=== PATIENT | female | born 1995 | race Caucasian/White ===

== ENCOUNTER 2021-12-30 13:42 | Outpatient (CLI) | payer BC, SELFPAY ==
--- NOTE | ~2021-12-30 | US_ITS ---
EXAMINATION: US OB transvaginal DATE: 12/30/2021 14:10 INDICATION: Threatened spontaneous TECHNIQUE: Real-time transvaginal obstetric ultrasound. FINDINGS: No prior studies for comparison. The uterus measures 8.1 x 5 x 5.6 cm. Uterus is retroverted. There is an intrauterine gestational sac , with pole identified. The crown rump length measures 0.63 cm, which correlates with a estima malachi gestational age of 6 weeks 3 days. heart tones are identified measuring 121 bpm. There is a 2.5 cm corpus luteal cyst of the right ovary. Left ovary is unremarkable. IMPRESSION: 1. SL IUP with an EGA of 6 weeks, 3 days (EDC by current ultrasound of 08/22/2022). Reviewed, dictated and finalized at location A. E GRINDER IMPRESSION: 1. SL IUP with an EGA of 6 weeks, 3 days (EDC by current ultrasound of 08/22/20 22).
== END 2021-12-30 13:43 ==
PROVIDERS: Visit Provider Obstetrics & Gynecology
DX: O20.0 Threatened abortion (principal); Z3A.01 Less than 8 weeks gestation of pregnancy
CPT/HCPCS: 76817

== ENCOUNTER 2022-05-26 10:38 | Outpatient (RCR) | payer BC, MEDICAID, SELFPAY ==
[2022-05-26 11:38] VITALS: BP 122/67; PULSE 106
== END 2022-07-27 10:00 | disposition home or self-care (01) ==
LOC: ANHOBOP 10:38
PROVIDERS: PCP Family Medicine; Visit Provider Obstetrics & Gynecology
DX: O36.8120 Decreased fetal movements, second trimester, not applicable or unspecified (principal); O24.419 Gestational diabetes mellitus in pregnancy, unspecified control; Z3A.27 27 weeks gestation of pregnancy
CPT/HCPCS: 59025

== ENCOUNTER 2022-06-26 15:53 | Outpatient (RCR) | payer BC, MEDICAID, SELFPAY ==
[2022-06-26 16:42] LABS: Basophils Percent Auto 0.2 % (0.2-1.2); Eosinophils Absolute Auto 0.1 K/mm3 (0-0.3); Eosinophils Percent Auto 0.9 % (0-4.4); Hematocrit 27.9 % (37.0-47.0); Hemoglobin 8.7 g/dL (12.0-15.0); Immature Granulocyte Absolute 0.19 K/mm3 (0.00-0.031); Lymphocytes Absolute Auto 2.05 K/mm3 (0.9-3.2); Lymphocytes Percent Auto 21.9 % (18.3-44.2); Mean Corpuscular HGB Conc 31.2 g/dl (32-36); Mean Corpuscular Hemoglobin 23.7 pg (26-34); Mean Platelet Volume 10.7 fl (7.4-10.4); Monocytes Absolute Auto 0.6 K/mm3 (0.1-0.6); Monocytes Percent Auto 6.7 % (2.6-8.5); Neutrophils Absolute Auto 6.4 K/mm3 (1.3-6.7); Neutrophils Percent Auto 68.3 % (45.5-73.1); Nucleated Red Blood Cells Perc 0.4 % (0.0-0.2); Platelet Count Result 284 k/mm3 (150-375); Red Blood Count 3.67 M/mm3 (4.2-5.4); Red Cell Distribution Width 15.4 % (11.5-14.5); White Blood Count 9.3 K/mm3 (4.5-10.0)
[2022-06-26 16:44] LABS: Appearance Urine Slightly Cloudy (Clear); Bilirubin Urine Negative (Negative); Blood Urine Negative (Negative); Color Urine Yellow (Yellow); Glucose Urine UA 3+ mg/dL (Negative); Ketones Urine Negative (Negative); Leukocyte Esterase Ur Trace LEU/UL (NEGATIVE); Nitrate Urine Negative (Negative); Protein Urine Negative (Negative); Specific Grav Ur 1.015 (1.001-1.035)
[2022-06-26 16:47] LABS: Alanine Aminotransferase 10 U/L (6-35); Albumin Level 3.1 g/dL (3.5-5.1); Alkaline Phosphatase 138 U/L (38-126); Anion Gap 8 mmol/L (8-16); Aspartate Amino Transferase 18 U/L (14-36); Bilirubin,Total 0.3 mg/dL (0.2-1.3); Blood Urea Nitrogen 4 mg/dL (7-17); Calcium 8.9 mg/dL (8.4-10.2); Carbon Dioxide 22 mmol/L (22-30); Chloride 104 mmol/L (98-107); Estimated Glomerular Filt Rate > 60; Glucose 171 mg/dL (65-110); Potassium 3.1 mmol/L (3.4-5.0); Sodium 134 mmol/L (137-145); Uric Acid 3.9 mg/dL (2.5-7.5)
[2022-06-26 16:53] LABS: Budding Yeast Urine Present /hpf; Mucus Urine Rare /lpf; RBC Urine 0-2 /hpf (0-2); Squamous Epithelial Cell Urine Many /hpf (Few)
[2022-06-26 17:01] LABS: Add Urine Microscopic? YES
[2022-06-26 18:08] LABS: Creatinine Urine 62.3 mg/dL; Total Protein Urine Random 11 mg/dL; Ur Ttl Prot Creatinine Ratio 0.18 mg/mg (0-0.20)
[2022-06-26 18:26] VITALS: BP 134/76; PULSE 109
== END 2022-08-15 08:24 | disposition home or self-care (01) ==
LOC: ANHDMC 15:53
PROVIDERS: PCP Family Medicine; Visit Provider Obstetrics & Gynecology
DX: O24.319 Unspecified pre-existing diabetes mellitus in pregnancy, unspecified trimester (principal); Z71.89 Other specified counseling; Z3A.00 Weeks of gestation of pregnancy not specified
CPT/HCPCS: 36415; 59025; 80053; 81001; 82570; 84156; 84550; 85025; 87086; 87088; G0108

== ENCOUNTER 2022-07-19 09:31 | Observation (INO) | payer MEDICAID, SELFPAY ==
--- NOTE | 2022-07-19 09:32 | OBADM ---
This patient, Liseth Victoria, admitted to the OB room Labor/Delivery/Recovery 118 for observation. Patient/family oriented to hospital policies and general routines including ID bracelet, bed and alarms, visiting hours, pain management, procedures, bathroom and other care routines, personal items, smoking policy, room service/diet, and visiting hours. Patient/Family are encouraged to report perceived risks to care and to ask questions if they do not understand what they are told or what they should do.
[2022-07-19 11:21] VITALS: BP 125/76; PULSE 82
[2022-07-19 11:30] VITALS: BP 125/78; PULSE 87
[2022-07-19] MEDS: NIFEdipine 10 MG CAPSULE PO (11:34)
[2022-07-19 11:36] VITALS: BMI 37.5
--- NOTE | 2022-07-26 11:11 | PM.OBTRLD ---
OB - Triage/Final Diagnosis Visit Information Comments/Additional reasons for admission: I have assessed the risk for this patient, Liseth Victoria, and determined that she would benefit from observation care. Final Diagnosis (1) False labor: Code(s): O47.9 - False labor, unspecified Status: Acute
== END 2022-07-19 13:25 | disposition home or self-care (01) ==
PROVIDERS: Admitting Provider Obstetrics & Gynecology; PCP Family Medicine; Visit Provider Obstetrics & Gynecology
DX: O47.03 False labor before 37 completed weeks of gestation, third trimester (principal); O24.419 Gestational diabetes mellitus in pregnancy, unspecified control; Z3A.35 35 weeks gestation of pregnancy
CPT/HCPCS: A9270; G0378; G0379

== ENCOUNTER 2022-07-19 09:32 | Outpatient (RCR) | payer BC, MEDICAID, SELFPAY ==
[2022-06-29 15:03] VITALS: BP 107/58; PULSE 98
[2022-07-04 14:41] VITALS: BP 121/70; PULSE 101
[2022-07-11 16:40] VITALS: BP 113/68; PULSE 82
--- NOTE | ~2022-07-19 | US_ITS ---
EXAMINATION: US OB BPP wo non-stress DATE: 07/19/2022 11:14 INDICATION: Gestational diabetes. Decelerations. Third trimester. TECHNIQUE: Real-time pelvic ultrasound was performed. COMPARISON: Ultrasound 12/30/2021 FINDINGS: There is a single living fetus in vertex presentation. The placenta is anterior. heart rate is 174 beats per minute (bpm). The amniotic fluid volume is subjectively normal. Biophysical profile performed by the technologist: breathing (30 sec sustained breathing in 30 minutes): 2 out of 2 movement (3 gross body movements in 30 minutes): 2 out of 2 tone (one episode of secilmz-iyhnywqre-nqfrjdc limb movement): 2 out of 2 Amniotic fluid pocket (2 cm): 2 out of 2 Total score: 8 out of 8 IMPRESSION: 1. Single living fetus in vertex presentation. 2. Biophysical profile 8 out of 8. Reviewed, dictated and finalized at location A.
== END 2022-09-27 23:59 | disposition home or self-care (01) ==
LOC: ANHOBOP 09:32
PROVIDERS: PCP Family Medicine; Visit Provider Obstetrics & Gynecology
DX: O24.419 Gestational diabetes mellitus in pregnancy, unspecified control (principal); Z3A.32 32 weeks gestation of pregnancy; Z3A.33 33 weeks gestation of pregnancy
CPT/HCPCS: 59025; 76819; J2274; J3010

== ENCOUNTER 2022-07-19 22:27 | Observation (INO) | payer MEDICAID, SELFPAY ==
--- NOTE | 2022-07-19 22:33 | PM.OBTRLD ---
OB - Triage/Final Diagnosis Visit Information Date of evaluation: 07/19/22 Reason for evaluation: threatened labor Comments/Additional reasons for admission: I have assessed the risk for this patient, Liseth Victoria, and determined that she would benefit from observation care.
[2022-07-19 22:59] VITALS: BP 126/74; PULSE 85
[2022-07-19 23:01] VITALS: BP 126/78; PULSE 86
[2022-07-19 23:35] LABS: Appearance Urine Slightly Cloudy (Clear); Bilirubin Urine Negative (Negative); Blood Urine Negative (Negative); Glucose Urine UA Negative (Negative); Ketones Urine Negative (Negative); Leukocyte Esterase Ur 1+ LEU/UL (Negative); Nitrate Urine Negative (Negative); Protein Urine Negative (Negative); Specific Grav Ur 1.015 (1.001-1.035); Urobilinogen Urine 0.2 mg/dL (<2.0)
[2022-07-19 23:41] LABS: RBC Urine 0-2 /hpf (0-2); Squamous Epithelial Cell Urine Many /hpf (Few)
[2022-07-19 23:43] LABS: Add Urine Microscopic? YES; Color Urine Light Yellow (Yellow)
== END 2022-07-20 01:20 | disposition home or self-care (01) ==
PROVIDERS: Admitting Provider Obstetrics & Gynecology; PCP Family Medicine; Visit Provider Obstetrics & Gynecology
DX: O47.03 False labor before 37 completed weeks of gestation, third trimester (principal); O24.419 Gestational diabetes mellitus in pregnancy, unspecified control; Z3A.35 35 weeks gestation of pregnancy
CPT/HCPCS: 81001; 87086; 87088; A9270; G0378; G0379

== ENCOUNTER 2022-07-21 17:53 | Outpatient (CLI) | payer MEDICAID, SELFPAY ==
[2022-07-21 18:26] VITALS: BP 124/77; PULSE 89
== END 2022-07-21 19:30 | disposition home or self-care (01) ==
LOC: ANHOBOP 18:00 → ANHOBPP 07-26 06:10
PROVIDERS: PCP Family Medicine; Visit Provider Obstetrics & Gynecology
DX: O41.8X90 Other specified disorders of amniotic fluid and membranes, unspecified trimester, not applicable or unspecified (principal); Z3A.00 Weeks of gestation of pregnancy not specified
CPT/HCPCS: 59025; 84112; 99199

== ENCOUNTER 2022-07-22 14:49 | Inpatient (IN) | payer MEDICAID, SELFPAY ==
[2022-07-22] VITALS (59 sets, daily range): BP systolic 87–136; BP diastolic 63–85; PULSE 66–103; RESP 16; TEMP 36.2–37.3; O2SAT 94–100; BMI 38.0
--- NOTE | 2022-07-22 15:52 | P.PNAN_ITS ---
Anes - Initial Pre Proc Eval Date/Time: 07/22/22 15:52 Surgeon: Vincenzo Morgan MD Pre Op Diagnosis: SROM Patient Data Age: 27 Gender: F Height: Weight: Last Vital Signs Pulse Ox 100 07/22/22 15:47 Allergies Allergy/AdvReac Type Severity Reaction Status Date / Time No Known Allergies Allergy Verified 11/23/19 13:09 Home Medications Medication Instructions Recorded Confirmed Type insulin NPH isoph U-100 human 100 14 unit subcut BID 05/26/22 05/26/22 History unit/mL (3 mL) subcutaneous pen (Novolin N Flexpen) Patient hx anesthesia problems: none Family hx anesthesia problems: none Results Review: All pre-operative results and documents have been reviewed as part of the pre- operative evaluation. Anes - Eval Final PreProcedure Day of Procedure 07/22/22 15:52 Patient weight: obese Heart: regular rate and rhythm Lungs: clear to auscultation and normal air movement Airway: Mallampati scale class II Neurological: alert and oriented Last oral intake: >/= 8 hours ASA classification: III Emergent: no Anesthetic plan: proceed Anesthesia type and monitoring: regional spinal Results Review: All pre-operative results and documents have been reviewed as part of the pre- operative evaluation. Informed Consent: The patient's anesthetic plan and its attendant risks and benefits were discussed with the patient/family/POA. Questions were solicited and answers provided to the satisfaction of the patient/family/POA.
--- NOTE | 2022-07-22 16:10 | LDADM ---
Addendum entered by Filomena Nieves RN 07/22/22 18:58: Plans for surgery/ and pain managemenbt explained. Original Note: This patient, Liseth Victoria, was admitted to Labor/Delivery/Recovery 105 on 07/22/22 at 14:49. Plans for labor, pain management and were discussed with patient. Patient/family oriented to hospital policies and general routines including ID bracelet, bed and alarms, visiting hours, pain management, procedures, bathroom and other care routines, personal items, smoking policy, room service/diet and guest tray routines, security routines, and visiting hours. Patient/Family are encouraged to report perceived risks to care and to ask questions if they do not understand what they are told or what they should do. See OBIX for further documentation.
[2022-07-22] MEDS: LACTATED RINGERS 1,000 ML 125 ML IV CONT (16:20)
[2022-07-22 16:26] LABS: Glucose Point of Care 97 mg/dl (65-105)
[2022-07-22 16:29] LABS: Basophils Percent Auto 0.2 % (0.2-1.2); Eosinophils Absolute Auto 0.1 K/mm3 (0-0.3); Eosinophils Percent Auto 0.6 % (0-4.4); Hematocrit 30.7 % (37.0-47.0); Hemoglobin 9.2 g/dL (12.0-15.0); Immature Granulocyte Absolute 0.21 K/mm3 (0.00-0.031); Lymphocytes Absolute Auto 1.91 K/mm3 (0.9-3.2); Lymphocytes Percent Auto 18.1 % (18.3-44.2); Mean Corpuscular Volume 73.3 fl (80-100); Monocytes Absolute Auto 0.8 K/mm3 (0.1-0.6); Neutrophils Absolute Auto 7.5 K/mm3 (1.3-6.7); Neutrophils Percent Auto 71.1 % (45.5-73.1); Nucleated Red Blood Cells Absolute Auto 0.1 K/mm3 (0.0-0.012); Nucleated Red Blood Cells Perc 0.5 % (0.0-0.2); Platelet Count Result 278 k/mm3 (150-375); Red Blood Count 4.19 M/mm3 (4.2-5.4); Red Cell Distribution Width 16.9 % (11.5-14.5); White Blood Count 10.6 K/mm3 (4.5-10.0)
--- NOTE | 2022-07-22 16:50 | PM.IMHP ---
H&P: HPI History of Present Illness Date/Time: 07/22/22 16:50 Chief Complaint: Malaika patino Narrative: 27 y/o at 35 4/7 weeks here with SROM at 1400, confirmed by [facility] on arrival here. Feels occasional contractions. A2DM, on insulin. Good glycemic control. GBS has not been collected yet. Review of Systems Review of Systems: All systems reviewed & are unremarkable except as noted in HPI and below PMFSH Past Medical History Medical History (Updated 07/22/22 @ 16:54 by Vincenzo Morgan MD) History of gestational diabetes in prior , currently Surgical History Surgical History (Updated 07/22/22 @ 16:54 by Vincenzo Morgan MD) History of delivery Meds Home Medications and Allergies Home Medications Medication Instructions Recorded Confirmed Type insulin NPH isoph U-100 human 100 6 unit subcut QACBREAK 07/22/22 07/22/22 History unit/mL (3 mL) subcutaneous pen (Novolin N Flexpen) insulin regular human 100 unit/mL 14 unit subcut QACBREAK 07/22/22 07/22/22 History (3 mL) subcutaneous pen (Novolin R Flexpen) insulin regular human 100 unit/mL 18 unit subcut QACBREAK 07/22/22 07/22/22 History (3 mL) subcutaneous pen (Novolin R Flexpen) vit no.95-ferrous 1 tablet PO DAILY 07/22/22 07/22/22 History fumarate 28 mg-folic acid 800 mcg tablet () Allergies Allergy/AdvReac Type Severity Reaction Status Date / Time No Known Allergies Allergy Verified 11/23/19 13:09 Vital Signs Vital Signs - 24 hr 07/22/22 15:47 07/22/22 15:52 07/22/22 16:30 Pulse Rate 95 Blood Pressure 133/75 Pulse Oximetry 100 100 Exam Const: Orientation/consciousness: patient oriented x3 Other: Well-developed, well-nourished female in no acute distress. Neck: Thyroid: thyroid normal Lymphatic: no lymphadenopathy noted (in neck, axilla or inguinal nodes) Resp: Effort & Inspection: normal respiratory effort Auscultation: clear to auscultation bilaterally Cardio: Rate: regular rate Rhythm: regular rhythm Heart sounds: S1 normal heart sound present and S2 normal heart sound present GI: Other: ABD: Soft, nontender, nondistended, gravid. NST reactive. TOCO: contractions irregularly. No guarding or rebound tenderness. No hepatosplenomegaly. : General: Yes no CVA tenderness Other: [facility] pos Back/Spine/Pelvis: Back: no CVA tenderness Skin: General skin exam: normal color and no rashes or lesions noted Neuro: General: patient oriented x3 Extrem: Other: Extremities: nontender with no edema Psych: Mental Status: mental status grossly normal Affect: normal affect H&P: Results Labs Labs: Short CBC 07/22/22 Range/Units 16:22 WBC 10.6 H (4.5-10.0) K/mm3 Hgb 9.2 L (12.0-15.0) g/dL Hct 30.7 L (37.0-47.0) % Plt Count 278 (150-375) k/mm3 Assessment and Plan Assessment and plan (1) PROM (premature rupture of membranes): Code(s): O42.90 - Premature rupture of membranes, unspecified as to length of time between rupture and onset of labor, unspecified weeks of gestation Status: Acute Assessment and Plan: A: SROM at 35 4/7 weeks, with A2DM and prior . Desires repeat. P: Offered repeat . She understands risks of surgery to include risks of anesthesia, risks of pain, infection, bleeding, blood products, thromboembolic phenomena and damage to adjacent structures such as bowel, bladder, ureters, blood vessels and nerves. She understands all these risks and elects to proceed with surgery. (2) Gestational diabetes mellitus: Code(s): O24.419 - Gestational diabetes mellitus in , unspecified control Status: Acute (3) History of delivery: Code(s): Z98.891 - History of uterine scar from previous surgery Status: Acute
[2022-07-22 16:54] LABS: Anisocytosis 1+ (NORMAL); Microcytosis 1+ (NORMAL); Platelet Estimate Adequate (Adequate); Schistocytes None Seen (NORMAL)
--- NOTE | 2022-07-22 16:56 | WPDHPUPDATE1 ---
History and Physical Update Update Date/Time: 07/22/22 16:56 History and Physical has been reviewed, including an updated exam of the patient. There are NO changes in the patient's condition. Risks, benefits, and alternatives have been discussed and questions answered. Patient agrees to proceed with procedure.
[2022-07-22] MEDS: ceFAZolin 2 GM/D5W 50 ML 2 GM/50 ML BAG IVPB (17:10)
[2022-07-22 17:17] LABS: HIV 1/2 Ab P24 Ag Result Negative (Negative)
--- NOTE | 2022-07-22 17:54 | PM.OBPRVD ---
OB - Delivery Note Procedure Delivery date: 07/22/22 Procedure: Procedures Operation Date: 07/22/22 17:00 <No data on this case meets the specified criteria> Repeat low transverse delivery Events: Diabetes Mellitus, Premature Rupture of Membranes and Previous Delivery Delivery monitor: External FHT and External Uterine Route of delivery: (repeat ltcs) Specimen: Yes (cord blood, placenta) Quantitative Blood Loss (ml): 350 Anesthesia type: Spinal Disposition: PACU Complications: None Narrative: The patient was taken to the operating room where she was prepared and draped in the usual sterile fashion in dorsal supine position with a leftward tilt. She received cefazolin and azithromycin preoperatively. Spinal anesthesia was found to be adequate. A Pfannenstiel skin incision was made along the previous scar line and was carried through to the underlying layer of the fascia. The fascia was incised in the midline and the incision was extended laterally. The fascia was dissected free of the underlying rectus muscles. The rectus muscles were in the midline. The peritoneum was identified, tented up and entered sharply. The peritoneal incision was extended superiorly and inferiorly with good visualization of the bladder. The bladder blade was placed. The vesicouterine peritoneum was identified, tented up and entered sharply. The incision was extended laterally and the bladder flap was developed. The bladder blade was replaced. The uterus was then incised sharply in a transverse fashion along the lower uterine segment. The incision was extended laterally. The infant's head was delivered atraumatically to the sterile field, followed by the body. The nose and mouth were bulb suctioned. After a delay, the cord was clamped and cut. The was handed off the field. Cord blood was collected. The placenta was removed manually and was passed off the field. The uterus was exteriorized and cleared of all clots and debris. The uterine incision was reapproximated using 0 Monocryl in a running, locked fashion. Excellent hemostasis resulted as did excellent reapproximation of the normal anatomy. The uterus was returned the abdomen. The pelvis was irrigated copiously with warmed normal saline. Rigorous hemostasis was assured. The fascial layer was reapproximated using 0 Vicryl in a running fashion. The skin was closed with a running, subcuticular stitch of 4 0 Vicryl. Dermaflex was applied externally. Sponge, lap, needle and instrument counts were correct. The patient was taken to the recovery room in stable condition. The infant went to the nursery in stable condition. I was present and scrubbed the entire procedure. Baby Date of : 07/22/22 Time of : 17:28 Weeks of gestation at delivery: 35 gender: Female Weight (pounds): 7 Weight (ounces): 4 presentation: vertex Placenta delivery description: Manual Removal and Normal Configuration Cord Vessel Description: 3 Vessels and Delayed Cord Clamping score one minute: 8 score five minutes: 9
--- NOTE | 2022-07-22 17:56 | PM.OBDSVD ---
DS: Admitting Diagnosis Discharge Date 07/25/22 Admitting Diagnosis IUP at 35 4/7 weeks PROM A2DM Prior OB - DS: Summary OB Procedures : PTL Mgmt OB Procedures Intrapartum: OB Procedures: : None Peripartum Data Procedures: Procedures Operation Date: 07/22/22 17:00 <No data on this case meets the specified criteria> Repeat Low Transverse Delivery Time Spent with Patient Time attestation: Total time spent providing and/or coordinating discharge services: DS: Data Data Completed and Pending Labs on day of discharge: Labs from last 24 hours 07/22/22 07/22/22 07/22/22 16:22 16:22 16:22 WBC RBC Hgb Hct MCV MCH MCHC RDW Plt Count MPV Immature Gran % (Auto) Neut % (Auto) Lymph % (Auto) [place] % (Auto) Eos % (Auto) Baso % (Auto) Lymph # (Auto) [place] # (Auto) Eos # (Auto) Baso # (Auto) Abs Immat Gran (auto) Absolute Neuts (auto) Absolute Nucleated RBC Nucleated RBC % Platelet Estimate Anisocytosis Microcytosis Schistocytes POC Capillary Glucose RPR Pending HIV 1&2 Ab/P24 Ag 4thGn Negative Blood Type O Positive Antibody Screen Positive Antibody Identification Pending Antigen Identification Pending TERRENCE, IgG Interpret Pending TERRENCE, Poly Interpret Pending TERRENCE, Complement Interp Pending 07/22/22 07/22/22 16:22 16:13 WBC 10.6 H RBC 4.19 L Hgb 9.2 L Hct 30.7 L MCV 73.3 L MCH 22.0 L MCHC 30.0 L RDW 16.9 H Plt Count 278 MPV 11.0 H Immature Gran % (Auto) 2.0 H Neut % (Auto) 71.1 Lymph % (Auto) 18.1 L [place] % (Auto) 8.0 Eos % (Auto) 0.6 Baso % (Auto) 0.2 Lymph # (Auto) 1.91 [place] # (Auto) 0.8 H Eos # (Auto) 0.1 Baso # (Auto) 0.0 Abs Immat Gran (auto) 0.21 H Absolute Neuts (auto) 7.5 H Absolute Nucleated RBC 0.1 H Nucleated RBC % 0.5 H Platelet Estimate Adequate Anisocytosis 1+ Microcytosis 1+ Schistocytes None seen POC Capillary Glucose 97 RPR HIV 1&2 Ab/P24 Ag 4thGn Blood Type Antibody Screen Antibody Identification Antigen Identification TERRENCE, IgG Interpret TERRENCE, Poly Interpret TERRENCE, Complement Interp Discharge Plan Discharge Attending physician on discharge: Vincenzo Morgan Discharging Clinician: Vincenzo Morgan Patient Disposition: Home, Self-Care Activity: pelvic rest Diet: regular Discharge Instructions: Call or return if temperature above 100.4? F, increased abdominal pain, increased vaginal bleeding or any new problems. Stand Alone Forms: General Discharge Information Follow-up/Referrals: Vincenzo Morgan MD [Physician] - 4 Weeks Discharge Medications: New ibuprofen 600 mg tablet 600 mg PO Q6H PRN (Reason: cramps) Qty: 30 0RF hydrocodone-acetaminophen 5-325 mg tablet 1 - 2 tablet PO Q6H PRN (Reason: pain) Qty: 30 0RF ferrous sulfate 325 mg (65 mg iron) tablet 325 mg PO DAILY Qty: 30 0RF Continued PNV cmb#95-ferrous fumarate-FA [] 28 mg iron- 800 mcg Tablet 1 tablet PO DAILY Discontinued Novolin R Flexpen 100 unit/mL (3 mL) insulin pen 18 unit SUBCUT QACBREAK Novolin N Flexpen 100 unit/mL (3 mL) insulin pen 6 unit SUBCUT QACBREAK Novolin R Flexpen 100 unit/mL (3 mL) insulin pen 14 unit SUBCUT QACBREAK Date of admission: 07/22/22 14:49 Primary Care Provider: Negar,Tonio Sanchez Admitting Provider: Vincenzo Morgan Attending physician on admission: Vincenzo Morgan Condition: Stable
[2022-07-22] MEDS: OXYTOCIN 30 UNITS/NS 500 ML 30 UNITS/500 ML BAG 125 UNITS IV CONT (18:52)
[2022-07-22] MEDS: MORPHINE SULFATE INJ (*CRX) 10 MG/ML AMP 2 MG IV PUSH ×3 (18:58→19:42)
--- NOTE | 2022-07-22 20:18 | OBPPTRN ---
Patient transferred to post room #276 via ( wheelchair ). Support person present. Oriented to unit, room, information board, rooming in, admission packet and security measures. Patient verbalizes understanding.
[2022-07-22] MEDS: HYDROcodone/acetaminophen (*CRX) 10-325 MG TABLET 1 TAB (21:22)
[2022-07-23 00:15] VITALS: BP 130/79; PULSE 82; RESP 18; TEMP 36.7; O2SAT 98
[2022-07-23] MEDS: HYDROcodone/acetaminophen (*CRX) 10-325 MG TABLET 1 TAB PO ×3 (00:26→16:47)
[2022-07-23] MEDS: IBUPROFEN SUSPENSION 200 MG/10 ML UDC 600 MG PO ×3 (00:28→21:31)
[2022-07-23] MEDS: LORATADINE 10 MG TABLET PO ×2 (00:29→10:30)
[2022-07-23 04:00] VITALS: BP 125/80; PULSE 80; RESP 16; TEMP 36.6; O2SAT 98
[2022-07-23] MEDS: SIMETHICONE 80 MG TAB.CHEW PO (04:27)
[2022-07-23 05:14] LABS: Basophils Absolute Auto 0.1 K/mm3 (0.0-0.1); Basophils Percent Auto 0.5 % (0.2-1.2); Eosinophils Absolute Auto 0.1 K/mm3 (0-0.3); Eosinophils Percent Auto 0.5 % (0-4.4); Hematocrit 27.9 % (37.0-47.0); Hemoglobin 8.2 g/dL (12.0-15.0); Immature Granulocyte Percent A 1.6 % (0-0.5); Lymphocytes Absolute Auto 2.54 K/mm3 (0.9-3.2); Lymphocytes Percent Auto 20.2 % (18.3-44.2); Mean Corpuscular HGB Conc 29.4 g/dl (32-36); Mean Corpuscular Hemoglobin 21.6 pg (26-34); Mean Corpuscular Volume 73.4 fl (80-100); Mean Platelet Volume 10.9 fl (7.4-10.4); Monocytes Absolute Auto 0.8 K/mm3 (0.1-0.6); Monocytes Percent Auto 6.7 % (2.6-8.5); Neutrophils Absolute Auto 8.9 K/mm3 (1.3-6.7); Neutrophils Percent Auto 70.5 % (45.5-73.1); Nucleated Red Blood Cells Perc 0.2 % (0.0-0.2); Platelet Count Result 237 k/mm3 (150-375); Red Cell Distribution Width 16.7 % (11.5-14.5); White Blood Count 12.6 K/mm3 (4.5-10.0)
[2022-07-23 06:55] VITALS: BP 120/67; PULSE 86; RESP 16; TEMP 36.7; O2SAT 97
[2022-07-23] MEDS: HYDROcodone/acetaminophen (*CRX) 5-325 MG TABLET 1 TAB PO ×3 (08:45→21:31)
[2022-07-23] MEDS: POLYSACCHARIDE IRON COMPLEX 150 MG CAPSULE PO (10:30)
[2022-07-23] MEDS: DOCUSATE SODIUM 100 MG CAPSULE PO (10:30)
[2022-07-23] MEDS: MULTIVIT/MIN/PREN/FOL AC/IRON TABLET 1 TAB PO (10:30)
--- NOTE | 2022-07-23 11:53 | P.PNOB_ITS ---
OB - PN: Subj Subjective Date/time seen: 07/23/22 11:53 Narrative: Pain OK. Tolerating diet. Says 1h pp breakfast was 126. She did not check a FBG today. OB - PN: Obj Data Labs CBC & Chem 7: 07/23/22 04:34 Labs: Laboratory Results - last 24 hr 07/22/22 07/22/22 07/22/22 16:13 16:22 16:22 WBC 10.6 H RBC 4.19 L Hgb 9.2 L Hct 30.7 L MCV 73.3 L MCH 22.0 L MCHC 30.0 L RDW 16.9 H Plt Count 278 MPV 11.0 H Immature Gran % (Auto) 2.0 H Neut % (Auto) 71.1 Lymph % (Auto) 18.1 L [place] % (Auto) 8.0 Eos % (Auto) 0.6 Baso % (Auto) 0.2 Lymph # (Auto) 1.91 [place] # (Auto) 0.8 H Eos # (Auto) 0.1 Baso # (Auto) 0.0 Abs Immat Gran (auto) 0.21 H Absolute Neuts (auto) 7.5 H Absolute Nucleated RBC 0.1 H Nucleated RBC % 0.5 H Platelet Estimate Adequate Anisocytosis 1+ Microcytosis 1+ Schistocytes None seen POC Capillary Glucose 97 HIV 1&2 Ab/P24 Ag 4thGn Blood Type O Positive Antibody Screen Positive Antibody Identification Inconclusive Antigen Identification E Antigen - NEGATIVE TERRENCE, IgG Interpret Not Performed TERRENCE, Poly Interpret Negative TERRENCE, Complement Interp Not Performed 07/22/22 07/23/22 16:22 04:34 WBC 12.6 H RBC 3.80 L Hgb 8.2 L Hct 27.9 L MCV 73.4 L MCH 21.6 L MCHC 29.4 L RDW 16.7 H Plt Count 237 MPV 10.9 H Immature Gran % (Auto) 1.6 H Neut % (Auto) 70.5 Lymph % (Auto) 20.2 [place] % (Auto) 6.7 Eos % (Auto) 0.5 Baso % (Auto) 0.5 Lymph # (Auto) 2.54 [place] # (Auto) 0.8 H Eos # (Auto) 0.1 Baso # (Auto) 0.1 Abs Immat Gran (auto) 0.20 H Absolute Neuts (auto) 8.9 H Absolute Nucleated RBC 0.0 Nucleated RBC % 0.2 Platelet Estimate Anisocytosis Microcytosis Schistocytes POC Capillary Glucose HIV 1&2 Ab/P24 Ag 4thGn Negative Blood Type Antibody Screen Antibody Identification Antigen Identification TERRENCE, IgG Interpret TERRENCE, Poly Interpret TERRENCE, Complement Interp OB - PN A/P Plan Comments: A: POD#1, doing well. P: Routine care. Exam Narrative: AVSS I/O OK ABD soft, nontender, fundus firm. Incision c/d/i. EXT nontender
[2022-07-23 13:00] VITALS: BP 114/71; PULSE 76; RESP 16; TEMP 36.7
[2022-07-23 16:52] VITALS: BP 128/79; PULSE 82; RESP 16; TEMP 36.6; O2SAT 98
--- NOTE | 2022-07-23 17:43 | PC.NURSE ---
Patient glucose check at 10:31 was 126.
--- NOTE | 2022-07-23 17:44 | PC.NURSE ---
Patient glucose check at 1358 was 120.
[2022-07-23 18:50] VITALS: BP 128/79; PULSE 85; RESP 16; TEMP 36.6; O2SAT 100
[2022-07-23 20:20] LABS: Glucose Point of Care 156 mg/dl (65-105)
[2022-07-24] MEDS: HYDROcodone/acetaminophen (*CRX) 10-325 MG TABLET 1 TAB PO ×4 (01:01→21:41)
[2022-07-24] MEDS: HYDROcodone/acetaminophen (*CRX) 5-325 MG TABLET 1 TAB PO ×3 (04:18→18:11)
[2022-07-24] MEDS: IBUPROFEN SUSPENSION 200 MG/10 ML UDC 600 MG PO ×3 (04:21→18:11)
[2022-07-24] MEDS: MULTIVIT/MIN/PREN/FOL AC/IRON TABLET 1 TAB PO (07:59)
[2022-07-24] MEDS: DOCUSATE SODIUM 100 MG CAPSULE PO ×2 (08:00→16:45)
[2022-07-24] MEDS: POLYSACCHARIDE IRON COMPLEX 150 MG CAPSULE PO ×2 (08:00→16:45)
[2022-07-24] MEDS: SIMETHICONE 80 MG TAB.CHEW PO ×3 (08:00→21:42)
[2022-07-24 08:11] LABS: Glucose Point of Care 72 mg/dl (65-105)
[2022-07-24 08:40] VITALS: BP 125/80; PULSE 78; RESP 18; TEMP 36.1; O2SAT 99
--- NOTE | 2022-07-24 09:54 | PM.OBPNVD ---
OB - PN: Subj Subjective Date/time seen: 07/24/22 09:54 Narrative: Pain OK. Tolerating diet. OB - PN: Obj Data Labs CBC & Chem 7: 07/23/22 04:34 Labs: Laboratory Results - last 24 hr 07/23/22 07/24/22 20:12 07:57 POC Capillary Glucose 156 H 72 OB - PN A/P Plan Comments: A: POD#2, doing well. P: Routine care. Exam Narrative: AVSS I/O OK ABD soft, nontender, fundus firm. Incision c/d/i. EXT nontender
[2022-07-24] MEDS: LORATADINE 10 MG TABLET PO (11:59)
[2022-07-24 20:02] VITALS: BP 133/87; PULSE 78; RESP 18; TEMP 36.4; O2SAT 100
[2022-07-25] MEDS: HYDROcodone/acetaminophen (*CRX) 5-325 MG TABLET 1 TAB PO ×3 (00:48→13:18)
[2022-07-25] MEDS: IBUPROFEN SUSPENSION 200 MG/10 ML UDC 600 MG PO ×3 (00:48→13:19)
[2022-07-25] MEDS: HYDROcodone/acetaminophen (*CRX) 10-325 MG TABLET 1 TAB PO ×2 (03:53→10:13)
[2022-07-25] MEDS: SIMETHICONE 80 MG TAB.CHEW PO ×3 (03:53→13:20)
[2022-07-25] MEDS: POLYSACCHARIDE IRON COMPLEX 150 MG CAPSULE PO (07:15)
[2022-07-25] MEDS: LORATADINE 10 MG TABLET PO (07:15)
[2022-07-25] MEDS: MULTIVIT/MIN/PREN/FOL AC/IRON TABLET 1 TAB PO (07:15)
[2022-07-25] MEDS: DOCUSATE SODIUM 100 MG CAPSULE PO (07:16)
[2022-07-25 07:45] VITALS: BP 126/82; PULSE 82; RESP 18; TEMP 36.3; O2SAT 100
[2022-07-25 07:53] LABS: Rapid Plasma Reagin Non-Reactive (NonReactive)
--- NOTE | 2022-07-25 11:12 | PM.OBPNVD ---
OB - PN: Subj Subjective Date/time seen: 07/25/22 11:12 Narrative: Pain OK. Tolerating diet. OB - PN: Obj Data Labs CBC & Chem 7: 07/23/22 04:34 Labs: Laboratory Results - last 24 hr 07/22/22 16:22 RPR Non-reactive OB - PN A/P Plan Comments: A: POD#3, doing well. P: Routine care. Plan home tomorrow. Exam Narrative: AVSS I/O OK ABD soft, nontender, fundus firm. Incision c/d/i. EXT nontender
--- NOTE | 2022-07-25 12:35 | PM.OBPNVD ---
OB - PN: Subj Subjective Date/time seen: 07/25/22 12:35 Narrative: The baby needs to stay an extra day, but the patient would like to be discharged to a no care bed, so she can go visit her other child. OB - PN: Obj Data Labs CBC & Chem 7: 07/23/22 04:34 Labs: Laboratory Results - last 24 hr 07/22/22 16:22 RPR Non-reactive
--- NOTE | 2022-07-25 13:00 | PC.NURSE ---
Patient viewed the discharge video Mother & Baby Care, The First Two Weeks . Patient was given the opportunity and encouraged to ask questions. Patient verbalized understanding of information shared and has been given the mother/baby guide for home reference.
[2022-07-28 11:20] VITALS: BP 123/84; PULSE 91; RESP 20; TEMP 36.5; O2SAT 100
== END 2022-07-25 14:15 | disposition home or self-care (01) | DRG 540 ==
LOC: ANHLDR 15:44 → ANHOB2 20:55
PROVIDERS: Admitting Provider Obstetrics & Gynecology; PCP Family Medicine; Visit Provider Obstetrics & Gynecology
PROC: 10D00Z1 Extraction of Products of Conception, Low, Open Approach (ICD-10-PCS; CPT 59514; principal; 2022-07-22 17:00)
DX: O34.219 Maternal care for unspecified type scar from previous cesarean delivery (principal); O24.424 Gestational diabetes mellitus in childbirth, insulin controlled; O42.913 Preterm premature rupture of membranes, unspecified as to length of time between rupture and onset of labor, third trimester; Z3A.35 35 weeks gestation of pregnancy; Z37.0 Single live birth
CPT/HCPCS: 36415; 82948; 84112; 85025; 86592; 86703; 86850; 86880; 86900; 86901; 86902; 88307; A9270; G0432; J0131; J0456; J0690; J2270; J2274; J2405; J2590; J7120

== ENCOUNTER 2022-11-21 13:20 | Emergency (ER) | payer MEDICAID, SELFPAY ==
--- NOTE | ~2022-11-21 | CT_ITS ---
EXAMINATION: CT brain wo/w con DATE: 11/21/2022 14:57 INDICATION: Headache. Right-sided weakness. Body numbness. TECHNIQUE: Computed tomography (CT) of the head was performed without and with 100 mL Omnipaque 350 i ntravenous contrast. The mA was adjusted according to patient size. Iterative reconstruction techniqu e was employed. The dose-length product was 1059.33 mGy-cm. COMPARISON: None FINDINGS: There is no intracranial hemorrhage, acute infarction, or abnormal intracranial mass lesion . The ventricles are normal in size. The mastoid air cells are normal. The paranasal sinuses are leonardo r. The internal cerebral veins, vein of Alan, and dural venous sinuses are normal. IMPRESSION: 1. Normal brain. Reviewed, dictated and finalized at location A. [employer] IMPRESSION: 1. Normal brain.
--- NOTE | ~2022-11-21 | XR_ITS ---
EXAMINATION: XR chest 2V DATE: 11/21/2022 14:33 INDICATION: Numbness. Headache. Nausea. TECHNIQUE: Frontal and lateral views of the chest were obtained. COMPARISON: None. FINDINGS: The chest demonstrates clear lungs without pneumonia, pleural effusion, or pneumothorax. Th e heart size is normal. IMPRESSION: 1. No acute cardiopulmonary disease. Reviewed, dictated and finalized at location A. PER DIEM
[2022-11-21 13:40] VITALS: BP 141/81; PULSE 104; RESP 16; TEMP 36.8; O2SAT 98
[2022-11-21 14:06] VITALS: BP 133/82; PULSE 94; RESP 16; O2SAT 100
--- NOTE | 2022-11-21 14:13 | ECG_ITS ---
Measurements Intervals [place] Rate: 69 P: 37 RI: 128 QRS: 45 QRSD: 87 T: 14 QT: 399 QTc: 429 Interpretive Statements SINUS RHYTHM WITH MARKED SINUS ARRHYTHMIA BASELINE WANDER- AVL, AVF, V3-V6 NORMAL ECG NO PREVIOUS ECG AVAILABLE FOR COMPARISON Electronically Signed On 11-21-2022 14:22:39 RN URGENT CARE by Rashi Brand D.O.
[2022-11-21 14:17] LABS: Glucose Point of Care 92 mg/dl (65-105)
--- NOTE | 2022-11-21 14:19 | ED.NEUROSD ---
HPI - Neuro Symptoms/Deficit General Chief Complaint: Neuro Symptoms/Deficit Stated Complaint: trouble moving right arm, whole body numbness Time Seen by Provider: 11/21/22 13:58 History of Present Illness HPI Narrative: This is a 27-year-old female with recent medical history of right ear infection, presenting with emergency department complaining of headache with intermittent numbness. She states she has had headache, described as throbbing, 5 of 10, associated with right ear pain. She was treated with antibiotics and steroids and finished her last dose of both today. Today, she noted right sided numbness, and her states she had an episode of slurred speech. Related Data Home Medications Medication Instructions Recorded Confirmed vit no.95-ferrous 1 tablet PO DAILY 07/22/22 07/22/22 fumarate 28 mg-folic acid 800 mcg tablet () Allergies Allergy/AdvReac Type Severity Reaction Status Date / Time No Known Allergies Allergy Verified 11/23/19 13:09 Review of Systems Review of Systems: CONSTITUTIONAL: Denies fever, chills, or sweats. EYES: Denies visual changes, redness, or discharge. ENT: Denies rhinorrhea, congestion, sore throat, or otalgia. CARDIOVASCULAR: Denies chest pain, palpitations, or edema. RESPIRATORY: Denies cough or dyspnea. GASTROINTESTINAL: Denies abdominal pain, nausea, vomiting, or diarrhea. GENITOURINARY: Denies dysuria or hematuria. SKIN: Denies rash or itching. MUSCULOSKELETAL: Denies back pain, joint pain, or myalgia. NEUROLOGIC: headache, numbness, Denies weakness. PSYCHIATRIC: Denies anxiety or depression. [facility] Past Medical History Medical History History of gestational diabetes in prior , currently Surgical History Surgical History History of delivery Family History Family History Other No pertinent family history in first degree relatives Social History Social History Smoking status: Never smoker Second hand tobacco smoke exposure: Yes ( vapes) Substance use: never Spiritual care concerns: No Exam Narrative: GENERAL: Well-developed, well-nourished, and in no acute distress. HEAD: Normocephalic, atraumatic. EYES: PERRLA and EOMI. Fundoscopy shows pale vasculature bilaterally ENT: Nares clear, no rhinorrhea or epistaxis. Mucous membranes moist. Oropharynx without tonsillar hypertrophy exudate or other lesions. Bilateral TMs pearly glover right TM bulging; Left TM appears normal. NECK: Supple. No adenopathy or masses. No carotid bruits or JVD CHEST: Clear to auscultation. No respiratory distress. No wheezes rales or rhonchi HEART: Regular rate and rhythm. No murmur heard. Normal peripheral pulses. ABDOMEN: Soft, nontender, nondistended, normal active bowel sounds. EXTREMITIES: Normal range of motion. No edema. SKIN: Warm, dry, no rash. NEURO: No focal deficits. Strength 5 of 5 in all extremities, sensation intact bilaterally, no noted ataxia. Alert and oriented x3. PSYCH: Normal mood and affect. Course Course Emergency Course: 15:54 - CT head with contrast unremarkable. Labs demonstrate a white blood cell count of 11.3 but are otherwise unremarkable. Chest x-ray unremarkable. UA positive for nitrates and leukocyte esterase, however in the absence of symptoms, will hold antibiotics for UTI. On reevaluation, the patient still complains of headache. Tachycardia improved with IV fluids. We will give acetaminophen. I suspect the patient's symptoms are related to her ear infection and use of steroids. Will discharge with pain and nausea medications and recommendations to follow-up with her primary care doctor. Discussed return emergency cautions including signs/symptoms of intracranial
[2022-11-21] MEDS: SODIUM CHLORIDE 0.9% IV 1,000 ML 999 ML IV CONT (14:25)
[2022-11-21] MEDS: ONDANSETRON INJ 4 MG/2 ML VIAL IV PUSH (14:25)
[2022-11-21 14:27] LABS: Basophils Absolute Auto 0.1 K/mm3 (0.0-0.1); Basophils Percent Auto 0.7 % (0.2-1.2); Eosinophils Percent Auto 0.4 % (0-4.4); Hematocrit 43.6 % (37.0-47.0); Hemoglobin 13.9 g/dL (12.0-15.0); Immature Granulocyte Absolute 0.15 K/mm3 (0.00-0.031); Immature Granulocyte Percent A 1.3 % (0-0.5); Lymphocytes Absolute Auto 2.67 K/mm3 (0.9-3.2); Lymphocytes Percent Auto 23.6 % (18.3-44.2); Mean Corpuscular HGB Conc 31.9 g/dl (32-36); Mean Corpuscular Hemoglobin 25.5 pg (26-34); Mean Corpuscular Volume 79.9 fl (80-100); Monocytes Absolute Auto 0.8 K/mm3 (0.1-0.6); Monocytes Percent Auto 7.3 % (2.6-8.5); Neutrophils Absolute Auto 7.5 K/mm3 (1.3-6.7); Neutrophils Percent Auto 66.7 % (45.5-73.1); Platelet Count Result 358 k/mm3 (150-375); Red Blood Count 5.46 M/mm3 (4.2-5.4); Red Cell Distribution Width 15.9 % (11.5-14.5); White Blood Count 11.3 K/mm3 (4.5-10.0)
[2022-11-21 14:38] LABS: Alanine Aminotransferase 24 U/L (6-35); Albumin Level 4.7 g/dL (3.5-5.1); Alkaline Phosphatase 138 U/L (38-126); Anion Gap 9 mmol/L (8-16); Aspartate Amino Transferase 27 U/L (14-36); Bilirubin,Total 0.4 mg/dL (0.2-1.3); Blood Urea Nitrogen 8 mg/dL (7-17); Calcium 8.9 mg/dL (8.4-10.2); Carbon Dioxide 27 mmol/L (22-30); Chloride 99 mmol/L (98-107); Estimated CRCL calculation 136 ml/min; Estimated Glomerular Filt Rate > 60; Ethanol < 10 mg/dL (<10); Glucose 86 mg/dL (65-110); Potassium 3.7 mmol/L (3.4-5.0); Sodium 135 mmol/L (137-145)
[2022-11-21 14:47] LABS: Appearance Urine Clear (Clear); Bilirubin Urine Negative (Negative); Blood Urine 1+ (Negative); Color Urine Yellow (Yellow); Glucose Urine UA Negative (Negative); Ketones Urine Negative (Negative); Leukocyte Esterase Ur 1+ LEU/UL (Negative); Nitrate Urine Negative (Negative); Protein Urine Negative (Negative); Specific Grav Ur 1.015 (1.001-1.035); Urobilinogen Urine 0.2 mg/dL (<2.0); pH Urine 8.5 (5.0-9.0)
[2022-11-21 14:53] LABS: Mucus Urine Rare /lpf; RBC Urine 0-2 /hpf (0-2); Squamous Epithelial Cell Urine Moderate /hpf (Few); WBC Urine 0-3 /hpf
[2022-11-21 14:58] LABS: Add Urine Microscopic? YES
[2022-11-21 16:31] VITALS: PULSE 88; RESP 16; O2SAT 98
== END 2022-11-21 17:35 | disposition home or self-care (01) ==
PROVIDERS: Emergency Provider Preventive Medicine Aerospace Medicine; PCP Family Medicine
DX: R51.9 Headache, unspecified (principal); R20.0 Anesthesia of skin; R20.2 Paresthesia of skin; Z77.29 Contact with and (suspected) exposure to other hazardous substances
CPT/HCPCS: 36415; 70470; 71046; 80053; 80307; 81001; 81025; 82948; 85025; 93005; 96361; 96365; 96375; 99284; J0131; J2405; J7030; Q9967